=== PATIENT | female | born 2000 | race Caucasian/White ===

== ENCOUNTER 2022-10-17 01:20 | Emergency (ER) | payer MEDICAID ==
[~2022-10-17] VITALS: Ht 167.6 cm; Wt 44.0 kg
[2022-10-17 01:36] VITALS: BP 103/61
--- NOTE | 2022-10-17 03:00 | NUR ---
PATIENT LEFT WITHOUT BEING SEEN BY DR. RODRIGUEZ. NO FURTHER CARE PROVIDED FOR PATIENT.
== END 2022-10-17 03:00 | disposition left against medical advice (07) ==
LOC: MED 01:20
DX: N39.0 Urinary tract infection, site not specified (principal); Z53.21 Procedure and treatment not carried out due to patient leaving prior to being seen by health care provider
CPT/HCPCS: 99281